=== PATIENT | female | born 1995 | race Caucasian/White ===

== ENCOUNTER 2017-07-27 10:06 | Emergency (ER) | payer BC ==
[~2017-07-27] VITALS: Ht 162.6 cm; Wt 52.2 kg
[~2017-07-27 10:06] MED LIST: ACET-3017 PO; AZIT-1 PO; CEPH500C24 PO; CEPH500T7 PO; FLUC100T35 PO; KET10 PO; LOR10 PO; LOR5/325 PO; NORG1TAB6 PO; ONDA4TAB PO; PARO-243 PO; PER PO; PRO25 PO; SERT-1 PO; TRAM-420 PO
--- NOTE | 2017-07-27 10:11 | ER Report ---
History and Physical Time Seen By MD: 10:09 HPI/ROS CHIEF COMPLAINT: Flu symptoms, symptoms HISTORY OF PRESENT ILLNESS: Patient is a 21-year-old female with chief complaint of body aches joint aches and subjective fevers for the past few days. She is also reporting some symptoms of including breast tenderness swelling she reports her last menstrual period was at the end of May but was very light compared to normal. She also recently stopped her control. He did get both urine and blood testing for at an outside facility which was reported by patient to be negative. She does report some nausea and vomiting over the past few days but denies any abdominal discomfort. 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 REVIEW OF SYSTEMS: Respiratory: No cough, no dyspnea. Cardiovascular: No chest pain, no palpitations. Gastrointestinal: Vomiting, noted abdominal pain Musculoskeletal: Joint pain Allergies: Coded Allergies: loratadine (Verified Allergy, Mild, 08/31/16) amoxicillin (Verified Allergy, Unknown, 07/27/17) clavulanic acid (Verified Allergy, Unknown, 07/27/17) Home Meds Active Scripts Ondansetron Hcl (ZOFRAN) 4 Mg Tablet, 4 MG PO Q8H for Nausea, #15 TAB 0 Refills Prov:GOSIA CONTRERAS MD 07/27/17 Naproxen (NAPROXEN) 375 Mg Tablet, 375 MG PO TID for PAIN, #20 TAB 0 Refills Prov:GOSIA CONTRERAS MD 07/27/17 Reported Medications Tramadol Hcl (TRAMADOL HCL) 50 Mg Tablet, 50 MG PO Q4-6H, TAB 08/31/16 Paroxetine Hcl (PAXIL) 20 Mg Tablet, 40 MG PO QDAY 07/04/14 Discontinued Reported Medications Fluconazole (DIFLUCAN) 100 Mg Tablet, PO QDAY 05/21/15 Norgestimate-Ethinyl Estradiol (Ortho Tri-Cyclen) 7 Daysx 3 28 Tablet, 1 TAB- CAP PO QDAY, 0 Refills STARTED 2 DAYS AGO 05/14/10 Discontinued Scripts Azithromycin (ZITHROMAX) 250 Mg Tablet, 250 MG PO QDAY for 5 Days, TAB 0 Refills Prov:SIRIA BULLOCK NP 08/31/16 Ondansetron (ZOFRAN ODT) 4 Mg Tab.rapdis, 4 MG PO Q6H Y for NAUSEA/VOMITING, # 20 TAB.INDIA 0 Refills Prov:SIRIA BULLOCK DISPLAY DIRECTOR 08/31/16 Cephalexin Monohydrate (CEPHALEXIN) 500 Mg Cap, 500 MG PO Q6H, #20 CAP TAKE 1 CAPSULE BY MOUTH EVERY SIX HOURS Prov:SERGIO GREENE DO 05/21/15 Past Medical/Surgical History Anxiety disorder, history of scoliosis and chronic back pain Hx Smoking: No Hx Alcohol Use: Yes Constitutional Vital Sign - Last 24 Hours 07/27/17 10:13 Temp 98.1 Pulse 117 Resp 18 B/P (MAP) 145/117 Pulse Ox 100 O2 Delivery Room Air Physical Exam General Appearance: The patient is alert, has no immediate need for airway protection and no current signs of toxicity. Eyes: Pupils equal and round no injection. Respiratory: Chest is non tender, lungs are clear to auscultation. Cardiac: regular rate and rhythm Gastrointestinal: Abdomen is soft and non tender, no masses, bowel sounds normal. Musculoskeletal: Neck: Neck is supple and non tender. Extremities have full range of motion and are non tender. Joints are non- erythematous and non-swollen Skin: Patient has lacelike rash to the upper chest and upper back. Medical Decision Making Data Points Laboratory Hematology Test 07/27/17 10:11 07/27/17 10:12 07/27/17 10:15 Urine Color Yellow Urine Clarity Clear Urine pH 5.0 pH (4.8-9.5) Urine Specific [place] 1.015 Urine Protein Negative mg/dL (NEGATIVE) Urine Glucose (UA) Negative mg/dL (NEGATIVE) Urine Ketones Negative mg/dL (NEGATIVE) Urine Blood Negative (NEGATIVE) Urine Nitrite Negative (NEGATIVE) Urine Bilirubin Negative (NEGATIVE) Urine Urobilinogen Negative mg/dL (0.2-1.9) Urine Leukocyte Esterase Negative (NEGATIVE) Urine RBC <1 /HPF (0-2/HPF) Urine WBC 1 /HPF (0-5/HPF) Urine Squamous Epithelial Cells Many /LPF (</=FEW) Urine Bacteria Few /HPF (NONE-FEW) Urine Mucus None /HPF (NONE-FEW) Urine HCG, Qualitative Negative (NEGATIVE) Influenza Virus Type A (PCR) Negative (NEGATIVE) Influenza Virus Type B (PCR) Negative (NEGATIVE) Group A Streptococcus Screen Negative (NEGATIVE) Chemistry Test 07/27/17 10:11 07/27/17 10:12 07/27/17 10:15 Urine Color Yellow Urine Clarity Clear Urine pH 5.0 pH (4.8-9.5) Urine Specific [place] 1.015 Urine Protein Negative mg/dL (NEGATIVE) Urine Glucose (UA) Negative mg/dL (NEGATIVE) Urine Ketones Negative mg/dL (NEGATIVE) Urine Blood Negative (NEGATIVE) Urine Nitrite Negative (NEGATIVE) Urine Bilirubin Negative (NEGATIVE) Urine Urobilinogen Negative mg/dL (0.2-1.9) Urine Leukocyte Esterase Negative (NEGATIVE) Urine RBC <1 /HPF (0-2/HPF) Urine WBC 1 /HPF (0-5/HPF) Urine Squamous Epithelial Cells Many /LPF (</=FEW) Urine Bacteria Few /HPF (NONE-FEW) Urine Mucus None /HPF (NONE-FEW) Urine HCG, Qualitative Negative (NEGATIVE) Influenza Virus Type A (PCR) Negative (NEGATIVE) Influenza Virus Type B (PCR) Negative (NEGATIVE) Group A Streptococcus Screen Negative (NEGATIVE) Urinalysis Test 07/27/17 10:11 07/27/17 10:12 Urine Color Yellow Urine Clarity Clear Urine pH 5.0 pH (4.8-9.5) Urine Specific [place] 1.015 Urine Protein Negative mg/dL (NEGATIVE) Urine Glucose (UA) Negative mg/dL (NEGATIVE) Urine Ketones Negative mg/dL (NEGATIVE) Urine Blood Negative (NEGATIVE) Urine Nitrite Negative (NEGATIVE) Urine Bilirubin Negative (NEGATIVE) Urine Urobilinogen Negative mg/dL (0.2-1.9) Urine Leukocyte Esterase Negative (NEGATIVE) Urine RBC <1 /HPF (0-2/HPF) Urine WBC 1 /HPF (0-5/HPF) Urine Squamous Epithelial Cells Many /LPF (</=FEW) Urine Bacteria Few /HPF (NONE-FEW) Urine Mucus None /HPF (NONE-FEW) Urine HCG, Qualitative Negative (NEGATIVE) ED Course/Re-evaluation ED Course 07/27/2017 10:40:21 am plan at this time will be to obtain urinalysis and urine test. We will also perform a flu swab as well as rapid strep. Given Naprosyn for pain we offered Zofran for nausea but currently she is not feeling nauseous. We will also prescribe Benadryl for her rash that is itching her at this time. Decision to Disposition Date: Jul 27, 2017 Decision to Disposition Time: 11:02 Depart Departure Latest Vital Signs Vital Signs Date Time Temp Pulse Resp B/P (MAP) Pulse Ox O2 Delivery O2 Flow Rate FiO2 07/27/17 10:13 98.1 117 18 145/117 100 Room Air Impression: Primary Impression: Parvovirus B19 arthritis Additional Impression: Parvovirus B19 Condition: Improved Disposition: HOME OR SELF-CARE New Scripts Ondansetron Hcl (ZOFRAN) 4 Mg Tablet 4 MG PO Q8H for Nausea, #15 TAB 0 Refills Prov: GOSIA CONTRERAS MD 07/27/17 Naproxen (NAPROXEN) 375 Mg Tablet 375 MG PO TID for PAIN, #20 TAB 0 Refills Prov: GOSIA CONTRERAS MD 07/27/17 Departure Forms: ER Transition Record, Medications Reconciliation, Off Work/ School Form, School or Work Release?: Work Number of days to be released: 2 Patient Portal Information Patient Instructions: Viral Syndrome (ED) Problem Qualifiers GOSIA CONTRERAS MD Jul 27, 2017 10:11
[2017-07-27] MEDS ORDERED: NAPROXEN 500 MG TAB PO ONE (10:35)
[2017-07-27] MEDS ORDERED: diphenhydrAMINE 25 MG CAP PO ONE (10:35)
[2017-07-27] MEDS ORDERED: ONDA4TAB97 PO (10:46)
[2017-07-27] MEDS ORDERED: NAPR375T44 PO (10:46)
[2017-07-27 11:04] VITALS: BP 123/87
== END 2017-07-27 11:03 | disposition home or self-care (01) ==
LOC: ER 10:12
DX: B97.6 Parvovirus as the cause of diseases classified elsewhere (principal)
CPT/HCPCS: 81001; 81025; 87081; 87502; 87880; 99283; Q0163

== ENCOUNTER 2017-07-30 11:23 | Emergency (ER) | payer BC ==
[~2017-07-30] VITALS: Ht 162.6 cm; Wt 57.6 kg
[~2017-07-30 11:23] MED LIST changes: +NAPR375T44 PO; +ONDA4TAB97 PO
[2017-07-30 11:27] VITALS: BP 152/97
[2017-07-30] MEDS ORDERED: AZITHROMYCIN 250 MG TAB PO ONE (11:35)
[2017-07-30] MEDS ORDERED: NS(*) 0.9% 1000 ML BAG 1,000 ML IV ONE (11:35)
[2017-07-30] MEDS ORDERED: KETOROLAC 30 MG/ML VIAL IVP ONE (11:35)
[2017-07-30] MEDS ORDERED: ONDANSETRON 4 MG/2 ML VIAL IVP ONE (11:35)
[2017-07-30] MEDS ORDERED: AZIT-1 PO (11:41)
--- NOTE | 2017-07-30 11:41 | ER Report ---
History and Physical Time Seen By MD: 11:37 Hx. of Stated Complaint: PT. HERE FOR STILL FEELING ILL, PT. WAS SEEN ON THURSDAY AND NEEDS A NOTE TO STAY HOME A FEW MORE DAYS FROM WORK. 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 during her youth of having it 7 times in one year is penicillin allergic Remainder of the 14 system rev: Yes Allergies: Coded Allergies: loratadine (Verified Allergy, Mild, 07/30/17) amoxicillin (Verified Allergy, Unknown, 07/30/17) clavulanic acid (Verified Allergy, Unknown, 07/30/17) Home Meds Active Scripts Azithromycin (ZITHROMAX) 250 Mg Tablet, 2 TAB PO DAILY for 4 Days, #8 TAB Prov:BRETT LOGAN 07/30/17 Ondansetron Hcl (ZOFRAN) 4 Mg Tablet, 4 MG PO Q8H for Nausea, #15 TAB 0 Refills Prov:GOSIA CONTRERAS MD 07/27/17 Naproxen (NAPROXEN) 375 Mg Tablet, 375 MG PO TID for PAIN, #20 TAB 0 Refills Prov:GOSIA CONTRERAS MD 07/27/17 Reported Medications Tramadol Hcl (TRAMADOL HCL) 50 Mg Tablet, 50 MG PO Q4-6H, TAB 08/31/16 Paroxetine Hcl (PAXIL) 20 Mg Tablet, 40 MG PO QDAY 07/04/14 Discontinued Reported Medications Fluconazole (DIFLUCAN) 100 Mg Tablet, PO QDAY 05/21/15 Norgestimate-Ethinyl Estradiol (Ortho Tri-Cyclen) 7 Daysx 3 28 Tablet, 1 TAB- CAP PO QDAY, 0 Refills STARTED 2 DAYS AGO 05/14/10 Discontinued Scripts Azithromycin (ZITHROMAX) 250 Mg Tablet, 250 MG PO QDAY for 5 Days, TAB 0 Refills Prov:SIRIA BULLOCK NP 08/31/16 Ondansetron (ZOFRAN ODT) 4 Mg Tab.rapdis, 4 MG PO Q6H Y for NAUSEA/VOMITING, # 20 TAB.INDIA 0 Refills Prov:SIRIA BULLOCK [employer] ST[employer] SOFTWARE ENGINEER 08/31/16 Cephalexin Monohydrate (CEPHALEXIN) 500 Mg Cap, 500 MG PO Q6H, #20 CAP TAKE 1 CAPSULE BY MOUTH EVERY SIX HOURS Prov:SERGIO GREENE 05/21/15 Past Medical/Surgical History History of anxiety disorder history of scoliosis and chronic back pain Reviewed Nurses Notes: Yes Old Medical Records Reviewed: Yes Hx Smoking: No Hx Alcohol Use: Yes Family History of: HTN Constitutional Vital Sign - Last 24 Hours 07/30/17 11:27 Pulse 103 Resp 20 B/P (MAP) 152/97 Pulse Ox 96 O2 Delivery Room Air Intake and Output 07/30/17 07/30/17 07/31/17 15:00 23:00 07:00 Intake Total 1000 ml Balance 1000 ml Physical Exam 21-year-old female alert and oriented mild distress HEENT has normocephalic/ atraumatic tympanic membranes are non-reddened throat and tonsils with exudate bilaterally tonsils are 3+ lymphadenopathy bilaterally heart rate regular lungs clear to auscultation abdomen is soft no pain to palpation is all extremities no peripheral edema Medical Decision Making Data Points Result Diagram: 07/30/17 1135 Laboratory Hematology Test 07/30/17 11:35 Sodium Level 137 mmol/L (137-145) Potassium Level 4.1 mmol/L (3.5-5.0) Chloride Level 102 mmol/L (98-107) Carbon Dioxide Level 23 mmol/L (22-31) Blood Urea Nitrogen 10 mg/dl (7-18) Creatinine 0.70 mg/dl (0.52-1.04) Glomerular Filtration Rate Calc > 60.0 Random Glucose 84 mg/dl (75-110) Calcium Level 9.3 mg/dl (8.4-10.2) Total Bilirubin 0.9 mg/dl (0.2-1.3) Aspartate Amino Transf (AST/SGOT) 30 U/L (0-35) Alanine Aminotransferase (ALT/SGPT) 28 U/L (0-56) Alkaline Phosphatase 76 U/L (0-126) Total Protein 7.9 gm/dl (6.3-8.2) Albumin 4.5 g/dl (3.5-5.0) Chemistry Test 1/18/18 11:35 Glomerular Filtration Rate Calc > 60.0 Calcium Level 9.3 mg/dl (8.4-10.2) Total Bilirubin 0.9 mg/dl (0.2-1.3) Aspartate Amino Transf (AST/SGOT) 30 U/L (0-35) Alanine Aminotransferase (ALT/SGPT) 28 U/L (0-56) Alkaline Phosphatase 76 U/L (0-126) Total Protein 7.9 gm/dl (6.3-8.2) Albumin 4.5 g/dl (3.5-5.0) ED Course/Re-evaluation Clinical Indication for ER IV: Hydration ED Course Patient has a diagnosis from the visit on 1:15 did give her IV fluids 1 L saline in the emergency room for hydration and started her treatment for strep throat with 500 mg azithromycin same medication to go home with some she is to follow-up with her primary care provider next 2 or 3 days was given 2 days off work work excuse was given felt better after treatment did get Zofran and Toradol for pain and nausea in the emergency room Decision to Disposition Date: Jul 30, 2017 Decision to Disposition Time: 12:20 Depart Departure Latest Vital Signs Vital Signs Date Time Temp Pulse Resp B/P (MAP) Pulse Ox O2 Delivery O2 Flow Rate FiO2 07/30/17 11:27 103 20 152/97 96 Room Air Impression: Primary Impression: Strep throat Condition: Improved Disposition: HOME OR SELF-CARE Referrals: DWAYNE ELLIOTT DO (PCP) 2 Days New Scripts Azithromycin (ZITHROMAX) 250 Mg Tablet 2 TAB PO DAILY for 4 Days, #8 TAB Prov: BRETT LOGAN 07/30/17 Patient Instructions: Strep Throat (ED) BRETT LOGAN Jul 30, 2017 11:41
== END 2017-07-30 12:18 | disposition home or self-care (01) ==
LOC: ER 11:25
DX: J02.0 Streptococcal pharyngitis (principal)
CPT/HCPCS: 96374; 96375; 99283; J1885; J2405; J7030; Q0144; 82040; 82247; 82310; 82374; 82435; 82565; 82947; 84075; 84132; 84155; 84295; 84450; 84460; 84520

== ENCOUNTER → 2018-08-04 | Outpatient (CLI) | payer BC ==
--- NOTE | 2018-08-04 15:20 | RADIOLOGY IMAGING REPORT ---
FACILITY: [facility] - [place] PATIENT NAME: Cierra Medina : 1995 MR: [id number] V: [id number] EXAM DATE: ORDERING PHYSICIAN: DWAYNE ELLIOTT TECHNOLOGIST: Location: [facility] [place] Patient: Cierra eMdina : 1995 Visit/Account:[id number] Date of Sevice: 08/04/2018 Exam type: L-SPINE 2 OR 3 VIEW History: Low back pain increasing over last two months Comparison: June 28, 2014. Findings: There are five nonrib-bearing lumbar-type vertebral bodies present. There is no evidence of acute fr actures or subluxations. The disc spaces are well-preserved Artifacts from skin piercings project ov er the lower lumbosacral region IMPRESSION: 1. Unremarkable lumbar spine series. If patient's symptoms persist MR may be helpful Report Dictated By: Denise Freeman MD at 08/04/2018 3:11 PM Report E-Signed By: Denise Freeman MD at 08/04/2018 3:15 PM WSN:[id number]
== END ==
LOC: RAD 14:28
PROVIDERS: ATTEND Family Medicine
DX: M54.5 Low back pain (principal)
CPT/HCPCS: 72100